=== PATIENT | female | born 1975 | race Caucasian/White ===

== ENCOUNTER 2024-04-07 11:34 | Outpatient (CLI) | payer BC, SELFPAY ==
[2024-04-07 18:12] LABS: Basophils % 0.5 % (0.1-2.0); Eosinophils # 0.1 K/mm3 (0.0-0.4); Eosinophils % 0.9 % (0.1-12.0); Hematocrit 44.8 % (37.0-47.0); Hemoglobin 14.5 g/dL (12.2-16.2); Lymphocytes # 2.3 K/mm3 (0.7-4.5); Lymphocytes % 30.5 % (10-50); Mean Corpuscular HGB Conc 32.3 g/dL (31.8-35.4); Mean Corpuscular Hemoglobin 26.4 pg (27.0-31.2); Mean Corpuscular Volume 81.6 fl (81-99); Mean Platelet Volume 9.9 fl (7.4-10.4); Monocytes # 0.3 K/mm3 (0.1-1.0); Monocytes % 4.6 % (1.7-9.3); Neutrophils # 4.7 K/mm3 (1.8-7.8); Neutrophils % 63.6 % (37.0-80.0); Platelet Count 268 K/mm3 (142-424); Red Blood Count 5.48 M/mm3 (4.20-5.40); Red Cell Distribution Width 14.2 % (11.5-17.5); White Blood Count 7.4 K/mm3 (4.8-10.8)
[2024-04-07 18:21] LABS: Alanine Aminotransferase 31 U/L (12-78); Albumin Level 4.6 g/dl (3.5-5.0); Albumin/Globulin Ratio 1.3 (1.1-1.8); Alkaline Phosphatase 154 U/L (38-126); Anion Gap 12.8 mEq/L (5-15); Aspartate Amino Transferase 35 U/L (14-36); Bilirubin,Total 0.5 mg/dl (0.2-1.3); Blood Urea Nitrogen 10 mg/dl (7-17); Calcium 10.3 mg/dl (8.4-10.2); Carbon Dioxide 30 mmol/L (22.0-30.0); Chloride 103 mmol/L (98-107); Chol/HDL Ratio 4.8 (1-3.5); Cholesterol 255 mg/dl (140-200); Estimated Glomerular Filt Rate 107 ml/min (>60); GFR (African American) 130 ML/MIN (>60); Globulin 3.6 g/dL (1.3-3.2); Glucose 94 mg/dl (74-100); HDL Cholesterol 53 mg/dl (40-60); Potassium 3.8 mmoL/L (3.5-5.1); Sodium 142 mmol/L (136-145); Total Protein,Serum 8.2 g/dl (6.3-8.2); Triglycerides 217 mg/dl (30-150); VLDL Cholesterol 43 mg/dL (0-40)
[2024-04-07 18:30] LABS: Hemoglobin A1C 5.5 % (4.0-6.0)
[2024-04-07 18:33] LABS: Direct LDL Cholesterol 142.42 mg/dL (100-129)
[2024-04-07 18:37] LABS: 25-OH Vitamin D, Total 71.5 ng/mL (30-100)
[2024-04-07 18:52] LABS: Thyroid Stimulating Hormone < 0.02 uIU/mL (0.465-4.68)
[2024-04-07 19:11] LABS: Vitamin B12 474 pg/mL (239-931)
== END 2024-04-07 23:59 | disposition home or self-care (01) ==
LOC: LAB.DROPOF 04-10 11:34
PROVIDERS: PCP Family Medicine; Visit Provider Family Medicine
DX: G62.9 Polyneuropathy, unspecified (principal); R56.9 Unspecified convulsions; Z83.3 Family history of diabetes mellitus; R63.5 Abnormal weight gain; Z76.89 Persons encountering health services in other specified circumstances; Z86.69 Personal history of other diseases of the nervous system and sense organs; Z68.24 Body mass index [BMI] 24.0-24.9, adult
CPT/HCPCS: 80050; 80053; 80061; 82306; 82607; 83036; 84443; 85025

== ENCOUNTER 2024-04-17 09:51 | Outpatient (CLI) | payer BC, SELFPAY ==
--- NOTE | 2024-04-17 09:51 | US_ITS ---
FINAL REPORT CLINICAL HISTORY: low tsh COMPARISON: None FINDINGS: Sonographic images of the thyroid gland were obtained. The right thyroid lobe measures 48 mm. in length. The left thyroid lobe measures 44 mm. in length. The thyroid isthmus measures 3 mm. The thyroid gland is somewhat enlarged with heterogeneous echogenicity. No focal mass or nodule is identified. IMPRESSION: Somewhat enlarged heterogeneous thyroid. No focal mass or nodule identified. Reviewed, Interpreted and Dictated by Vinicio Paulson III, MD Transcribed by Leida Treadwell Authenticated and [facility]
== END 2024-04-17 23:59 | disposition home or self-care (01) ==
LOC: RAD 09:51
PROVIDERS: PCP Family Medicine; Visit Provider Family Medicine
DX: R79.89 Other specified abnormal findings of blood chemistry (principal)
CPT/HCPCS: 76536

== ENCOUNTER 2024-07-28 12:26 | Outpatient (CLI) | payer OTHER, SELFPAY ==
--- NOTE | 2024-07-28 12:35 | MR_ITS ---
FINAL REPORT CLINICAL HISTORY: Left radicular pain 15 ml prohance FINDINGS: Multiplanar MR imaging of the lumbar spine was performed without and with contrast. On the sagittal T2-weighted images, abnormal decreased signal is seen at L2-3 and L3-4. The vertebral alignment is normal. There is no evidence of fracture. The conus is seen at approximately the L1 level and has an unremarkable appearance. L1-2: No significant canal stenosis or neuroforaminal narrowing is seen. L2-3: No significant canal stenosis or neuroforaminal narrowing is seen. L3-4: Mild annular disc bulge with mild bilateral neuroforaminal narrowing. L4-5: No significant central canal stenosis or neuroforaminal narrowing. L5-S1: No significant canal stenosis or neuroforaminal narrowing is seen. No abnormal contrast enhancement is identified. IMPRESSION: Mild annular disc bulge at L3-4 with mild bilateral neuroforaminal narrowing. Reviewed, Interpreted and Dictated by Jerry Aden MD Transcribed by Ellie Potter Authenticated and [facility]
[2024-07-28] MEDS: GADOTERIDOL INJ 20ML SYRINGE 15 ML IV (14:05)
[2024-07-28] MEDS: SODIUM CHLORIDE 0.9% 10ML SYR (RAD ONLY) 10 ML IV (14:05)
== END 2024-07-28 23:59 | disposition home or self-care (01) ==
PROVIDERS: PCP Family Medicine; Visit Provider Family Medicine
DX: G62.9 Polyneuropathy, unspecified (principal)
CPT/HCPCS: 72158; A9576

== ENCOUNTER 2024-10-12 11:45 | Outpatient (CLI) | payer OTHER, SELFPAY ==
[2024-10-12 19:49] LABS: T4 (Thyroxine) 8.9 ug/dl (5.53-11.0)
[2024-10-12 20:02] LABS: Thyroid Stimulating Hormone 0.69 uIU/mL (0.465-4.68)
== END 2024-10-12 23:59 | disposition home or self-care (01) ==
LOC: LAB.DROPOF 10-13 12:34
PROVIDERS: PCP Family Medicine; Visit Provider Family Medicine
DX: R63.5 Abnormal weight gain (principal)
CPT/HCPCS: 84436; 84443